=== PATIENT | female | born 1965 ===

== ENCOUNTER → 2018-07-18 22:15 | Outpatient (REF) | payer OTHER, SELFPAY ==
[2018-07-18 22:57] LABS: HEMOLYSIS < 15 (0-50); Iron 90 ug/dL (37-170)
[2018-07-18 23:06] LABS: Alanine Aminotransferase 19 IU/L (9-52); Albumin 4.4 g/dL (3.5-5.0); Albumin Globulin Ratio 1.7 (1.0-2.8); Alkaline Phosphatase 61 U/L (38-126); Aspartate Aminotransferase 27 IU/L (14-36); BUN Creatinine Ratio 12.9 (6-22); Bilirubin Total 0.7 mg/dL (0.2-1.3); Blood Urea Nitrogen 9 mg/dL (7-17); Calcium 9.4 mg/dL (8.4-10.2); Carbon Dioxide 27 mmol/L (22-32); Chloride 104 mmol/L (98-107); Cholesterol 193 mg/dL (140-199); Estimated Glomerular Filt Rate > 60.0 mL/min (>60); Globulin 2.6 g/dL (1.7-4.1); Glucose 81 mg/dL (70-100); HDL Cholesterol 62 mg/dL (40-60); HEMOLYSIS < 15 (0-50); LDL Cholesterol Calculated 117 mg/dL (<100); Potassium 4.3 mmol/L (3.4-5.1); Sodium 140 mmol/L (137-145); Triglycerides 69 mg/dL (35-150)
[2018-07-18 23:08] LABS: Percent Iron Saturation 25 % (15-50); Total Iron Binding Capacity 356 ug/dL (265-497); Transferrin 274 mg/dL (206-381)
[2018-07-18 23:40] LABS: Ferritin 26.3 ng/mL (11.1-264)
[2018-07-20 15:27] LABS: Progesterone < 0.5 ng/mL
[2018-07-22 18:37] LABS: Estrogen 132.7 pg/mL
== END ==
LOC: LAB 22:15
PROVIDERS: Visit Provider Naturopath
DX: Z00.00 Encounter for general adult medical examination without abnormal findings (principal); R53.83 Other fatigue
CPT/HCPCS: 36415; 80053; 80061; 82670; 82672; 82728; 83001; 83540; 83550; 84144; 84443; 85025